=== PATIENT | female | born 1940 | race Caucasian/White ===

== ENCOUNTER 2024-03-24 17:39 | Observation (INO) | payer MEDICARE, SELFPAY ==
[2024-03-24] VITALS (19 sets, daily range): BP systolic 130–161; BP diastolic 88–97; PULSE 75–122; RESP 13–26; TEMP 36.4; O2SAT 91–98
--- NOTE | ~2024-03-24 | XR_ITS ---
EXAMINATION: XR chest 1V portable Exam Date/Time: 03/24/2024 18:00 MAIL SUPERINTENDENT HISTORY: CP Comparison: 08/14/2016. RESULT: Lines, tubes, and devices: None. Lungs and pleura: Mild peripheral reticular opacities. Cardiomediastinal silhouette: Stable. Other: No acute osseous or upper abdominal finding. IMPRESSION: Mild reticular opacities may represent chronic senescent/interstitial change and/or mild interstitial edema. Reviewed, dictated and finalized at location K. SUPERINTENDENT IMPRESSION: Mild reticular opacities may represent chronic senescent/interstitial change an d/or mild interstitial edema.
--- NOTE | 2024-03-24 17:51 | ECG_ITS ---
Test Date: 2024-03-24 17:53:22 Measurements Intervals [place] Rate: 82 P: 0 [place]: 0 QRS: 55 QRSD: 88 T: -31 QT: 386 QTc: 453 Interpretive Statements ATRIAL FLUTTER/TACHYCARDIA WITH ABERRANT CONDUCTION OR VENTRICULAR PREMATURE COMPLEXES NONSPECIFIC ST & T-WAVE ABNORMALITY No previous ECG available for comparison Electronically Signed On 03-29-2024 10:22:36 MACHINIST APPRENTICE by Noé Mccormick M.D.
[2024-03-24 18:04] LABS: Basophils Absolute Auto 0.1 K/mm3 (0.0-0.1); Basophils Percent Auto 0.7 % (0.2-1.2); Eosinophils Absolute Auto 0.3 K/mm3 (0-0.3); Eosinophils Percent Auto 3.5 % (0-4.4); Hematocrit 40.3 % (37.0-47.0); Hemoglobin 13.7 g/dL (12.0-15.0); Immature Granulocyte Absolute 0.02 K/mm3 (0.00-0.031); Immature Granulocyte Percent A 0.2 % (0-0.5); Lymphocytes Absolute Auto 2.38 K/mm3 (0.9-3.2); Lymphocytes Percent Auto 26.9 % (18.3-44.2); Mean Corpuscular Hemoglobin 30.8 pg (26-34); Mean Corpuscular Volume 90.6 fl (80-100); Mean Platelet Volume 9.1 fl (7.4-10.4); Monocytes Absolute Auto 0.7 K/mm3 (0.1-0.6); Monocytes Percent Auto 7.4 % (2.6-8.5); Neutrophils Absolute Auto 5.4 K/mm3 (1.3-6.7); Neutrophils Percent Auto 61.3 % (45.5-73.1); Platelet Count Result 249 k/mm3 (150-375); Red Blood Count 4.45 M/mm3 (4.2-5.4); Red Cell Distribution Width 13.2 % (11.5-14.5); White Blood Count 8.8 K/mm3 (4.5-10.0)
[2024-03-24 18:17] LABS: INR 1.6; Prothrombin Time 19.9 Seconds (11.1-14.7)
[2024-03-24 18:18] LABS: Partial Thromboplastin Time 42.9 Seconds (22.3-36.8)
[2024-03-24 18:19] LABS: Alanine Aminotransferase 14 U/L (6-35); Albumin Level 4.3 g/dL (3.5-5.1); Alkaline Phosphatase 92 U/L (38-126); Anion Gap 3 mmol/L (4-12); Aspartate Amino Transferase 24 U/L (14-36); Bilirubin,Total 0.5 mg/dL (0.2-1.3); Blood Urea Nitrogen 9 mg/dL (7-17); Calcium 8.9 mg/dL (8.4-10.2); Carbon Dioxide 29 mmol/L (22-30); Chloride 104 mmol/L (98-107); Estimated CRCL calculation 49 ml/min; Estimated Glomerular Filt Rate > 60; Glucose 122 mg/dL (65-110); Lipase 191 U/L (23-300); Potassium 3.5 mmol/L (3.4-5.0); Sodium 136 mmol/L (137-145)
[2024-03-24 18:31] LABS: NT Pro B Type Natriuretic Pept 469 pg/mL (19.9-100); Troponin I 0.018 ng/mL (0.000-0.034)
--- NOTE | 2024-03-24 18:32 | ED_ITS ---
HPI - Chest Pain General Chief Complaint: Chest Pain Stated Complaint: CP Time Seen by Provider: 03/24/24 17:58 Source: patient Mode of arrival: EMS Limitations: other (patient only replies yes and no, hx CVA) History of Present Illness HPI narrative: This is a 83 year old female that presents to the ER for chest pain. Reportedly patient endorsed chest pain at her nursing facility. She also points to her legs when asked where her pain is. Unable to obtain much further history. Related Data Allergies Allergy/AdvReac Type Severity Reaction Status Date / Time rosuvastatin Allergy Unknown Unknown Verified 03/24/24 17:57 Review of Systems 2 Review of Systems: ROS unobtainable: Yes unobtainable due to mental status PMFSH Past Medical History Medical History (Updated 03/24/24 @ 22:00 by Zahira Nesbitt PA-C) Vascular dementia without behavioral disturbance Mixed hyperlipidemia Major depression, chronic Hypothyroidism (acquired) History of CVA (cerebrovascular accident) Essential hypertension CKD (chronic kidney disease) stage 3, GFR 30-59 ml/min Chronic atrial fibrillation Aphasia as late effect of cerebrovascular accident Social History Social History Smoking status: Never smoker Alcohol intake: never Exam 2 Narrative: GENERAL: Well-appearing, well-nourished, and in no acute distress. HEAD: Normocephalic, atraumatic. EYES: EOMI. ENT: Nares clear, no rhinorrhea or epistaxis. Mucous membranes moist. Oropharynx without tonsillar hypertrophy exudate or other lesions. NECK: Supple. No adenopathy or masses. No JVD CHEST: Clear to auscultation. No respiratory distress. No wheezes rales or rhonchi HEART: Regular rate and rhythm. No murmur heard. Normal peripheral pulses. EXTREMITIES: Normal range of motion. No edema. SKIN: Warm, dry, no rash. NEURO: Alert and oriented x1. Follows commands. Able to answer yes and no to questions PSYCH: Normal mood and affect Course Course Emergency Course: patient updated on her workup and recommendation for admission Consultations Consultation #1: Spoke with hospitalist about patient and workup who accepts admission Date: 03/24/24 Vital Signs Vital signs: Vital Signs Temperature 97.6 F 03/24/24 17:40 Pulse Rate 77 03/24/24 17:40 Respiratory Rate 20 03/24/24 17:40 Blood Pressure 161/91 H 03/24/24 17:40 Pulse Oximetry 96 03/24/24 17:40 Oxygen Delivery Room Air 03/24/24 17:40 Temperature 97.6 F 03/24/24 17:40 Pulse Rate 83 03/24/24 19:58 Respiratory Rate 17 03/24/24 19:58 Blood Pressure 130/88 03/24/24 18:37 Pulse Oximetry 97 03/24/24 19:58 Oxygen Delivery Room Air 03/24/24 18:58 MDM - Chest Pain MDM Narrative Medical decision making narrative: Patient presents to the emergency department for chest pain. Reporting improvement after nitro administration. Hypertensive upon arrival, this improved without intervention in the ER. CBC metabolic panel without concerning findings. EKG with nonspecific ST changes. Baseline and 3 hour troponin are not elevated, but are up trending. Her heart score is 5. Chest x-ray shows chronic senescent change versus mild interstitial edema. BNP 469. patient updated on her workup and recommendation for admission. Spoke with hospitalist about patient and workup who accepts admission Differential Diagnosis Differential diagnosis: Likely stable angina, unstable angina pectoris, atypical chest pain and costochondritis Lab Data Attestation: I reviewed the patient's lab results. 03/24/24 17:58 03/24/24 17:58 Labs: Lab Results 03/24/24 03/24/24 03/24/24 Range/Units 17:58 17:58 20:59 WBC 8.8 (4.5-10.0) K/mm3 RBC 4.45 (4.2-5.4) M/mm3 Hgb 13.7 (12.0-15.0) g/dL Hct 40.3 (37.0-47.0) % MCV 90.6 (80-100) fl MCH 30.8 (26-34) pg MCHC 34.0 (32-36) g/dl RDW 13.2 (11.5-14.5) % Plt Count 249 (150-375) k/mm3 MPV 9.1 (7.4-10.4) fl Immature Gran % (Auto) 0.2 (0-0.5) % Neut % (Auto) 61.3 (45.5-73.1) % Lymph % (Auto) 26.9 (18.3-44.2) % [place] % (Auto) 7.4 (2.6-8.5) % Eos % (Auto) 3.5 (0-4.4) % Baso % (Auto) 0.7 (0.2-1.2) % Lymph # (Auto) 2.38 (0.9-3.2) K/mm3 [place] # (Auto) 0.7 H (0.1-0.6) K/mm3 Eos # (Auto) 0.3 (0-0.3) K/mm3 Baso # (Auto) 0.1 (0.0-0.1) K/mm3 Abs Immat Gran (auto) 0.02 (0.00-0.031) K/mm3 Absolute Neuts (auto) 5.4 (1.3-6.7) K/mm3 Absolute Nucleated RBC 0.000 (0.0-0.012) K/mm3 Nucleated RBC % 0.0 (0.0-0.2) % PT 19.9 H (11.1-14.7) Seconds INR 1.6 APTT 42.9 H (22.3-36.8) Seconds Sodium 136 L (137-145) mmol/L Potassium 3.5 (3.4-5.0) mmol/L Chloride 104 (98-107) mmol/L Carbon Dioxide 29 (22-30) mmol/L Anion Gap 3 L (4-12) mmol/L BUN 9 (7-17) mg/dL Creatinine 0.80 (0.7-1.0) mg/dL Estim Creat Clear Calc 49 ml/min Estimated GFR > 60 (59 - ) Glucose 122 H (65-110) mg/dL Calcium 8.9 (8.4-10.2) mg/dL Total Bilirubin 0.5 (0.2-1.3) mg/dL AST 24 (14-36) U/L ALT 14 (6-35) U/L Alkaline Phosphatase 92 (38-126) U/L Troponin I 0.018 0.025 D (0.000-0.034) ng/mL NT-Pro-B Natriuret Pep 469 H Cancelled (19.9-100) pg/mL Total Protein 8.0 (6.3-8.2) g/dL Albumin 4.3 (3.5-5.1) g/dL Lipase 191 (23-300) U/L Imaging Data Radiologist's impression: ITS Impressions Chest X-Ray 03/24/24 18:15 IMPRESSION: Mild reticular opacities may represent chronic senescent/interstitial change and/or mild interstitial edema. ECG Data EKG #1: ECG completion date: 03/24/24 EKG Interpretation: normal rate, non-specific ST changes and normal QT Critical Care Time Critical Care Time Critical Care Time: No Discharge Plan Discharge Clinical Impression: Chest pain Qualifiers: Chest pain type: unspecified Qualified Code(s): R07.9 - Chest pain, unspecified Patient Disposition: Still a Patient Condition: Stable Quality HEART score for chest pain patients History: slightly suspicious ECG: non specific repolarization disturbance/LBTB/PM Age: > or = to 65 years Risk factors: > or = to 3 risk factors of atherosclerotic disease Troponin: < or = to 1x normal limit Heart score: 5
[2024-03-24] MEDS: ACETAMINOPHEN 500 MG TABLET 1000 MG PO (18:57)
--- NOTE | 2024-03-24 20:43 | ECG_ITS ---
Test Date: 2024-03-24 17:53:24 Measurements Intervals [place] Rate: 80 P: 0 [place]: 0 QRS: 57 QRSD: 86 T: -52 QT: 388 QTc: 448 Interpretive Statements ATRIAL FLUTTER/TACHYCARDIA WITH ABERRANT CONDUCTION OR VENTRICULAR PREMATURE COMPLEXES NONSPECIFIC ST & T-WAVE ABNORMALITY Compared to ECG 03/24/2024 17:53:22 No significant changes Electronically Signed On 03-29-2024 10:22:41 CARDBOARD CUTTER by Noé Mccormick M.D.
--- NOTE | 2024-03-24 20:45 | ECG_ITS ---
Test Date: 2024-03-24 21:10:02 Measurements Intervals [place] Rate: 82 P: 0 [place]: 0 QRS: 61 QRSD: 91 T: -65 QT: 412 QTc: 482 Interpretive Statements ATRIAL FIBRILLATION ST DEVIATION AND MODERATE T-WAVE ABNORMALITY, CONSIDER INFERIOR ISCHEMIA [-0.1+ mV T-WAVE IN II/aVF] significant baseline artifact affects interpretation Compared to ECG 03/24/2024 17:53:24 Possible ischemia now present Atrial flutter no longer present Ventricular premature complex(es) no longer present Aberrant conduction of supraventricular beat(s) no longer present T-wave abnormality still present Electronically Signed On 03-29-2024 10:26:28 PROCESS SAFETY SPECIALIST by Noé Mccormick M.D.
--- NOTE | 2024-03-24 21:50 | PC.NURSE ---
pure wick in place at this time.
[2024-03-24 21:51] LABS: Troponin I 0.025 ng/mL (0.000-0.034)
--- NOTE | 2024-03-24 23:53 | ECG_ITS ---
Test Date: 2024-03-24 23:56:37 Measurements Intervals [place] Rate: 94 P: 0 [place]: 0 QRS: 62 QRSD: 89 T: 0 QT: 372 QTc: 467 Interpretive Statements ATRIAL FIBRILLATION NONSPECIFIC ST & T-WAVE ABNORMALITY ABNORMAL RHYTHM ECG Compared to ECG 03/24/2024 21:10:02 Possible ischemia no longer present T-wave abnormality still present Electronically Signed On 03-29-2024 10:28:05 GRINDER AND HONER OPERATOR AUTOMATIC by Noé Mccormick M.D.
[2024-03-25] VITALS (31 sets, daily range): BP systolic 135–159; BP diastolic 82–115; PULSE 73–120; RESP 14–32; TEMP 36.7; O2SAT 92–100
[2024-03-25 00:26] LABS: Troponin I 0.027 ng/mL (0.000-0.034)
--- NOTE | 2024-03-25 01:02 | PC.NURSE ---
Pt placed in hospital bed at this time. Gown/linens changed, toussaint placed.
[2024-03-25 06:23] LABS: Basophils Absolute Auto 0.1 K/mm3 (0.0-0.1); Basophils Percent Auto 0.6 % (0.2-1.2); Eosinophils Absolute Auto 0.3 K/mm3 (0-0.3); Eosinophils Percent Auto 2.8 % (0-4.4); Hematocrit 43.7 % (37.0-47.0); Hemoglobin 14.8 g/dL (12.0-15.0); Immature Granulocyte Absolute 0.03 K/mm3 (0.00-0.031); Immature Granulocyte Percent A 0.3 % (0-0.5); Lymphocytes Absolute Auto 2.12 K/mm3 (0.9-3.2); Lymphocytes Percent Auto 20.5 % (18.3-44.2); Mean Corpuscular HGB Conc 33.9 g/dl (32-36); Mean Corpuscular Volume 91.6 fl (80-100); Monocytes Absolute Auto 0.6 K/mm3 (0.1-0.6); Monocytes Percent Auto 5.7 % (2.6-8.5); Neutrophils Absolute Auto 7.3 K/mm3 (1.3-6.7); Neutrophils Percent Auto 70.1 % (45.5-73.1); Platelet Count Result 260 k/mm3 (150-375); Red Blood Count 4.77 M/mm3 (4.2-5.4); Red Cell Distribution Width 13.1 % (11.5-14.5); White Blood Count 10.4 K/mm3 (4.5-10.0)
[2024-03-25 06:33] LABS: Alanine Aminotransferase 14 U/L (6-35); Albumin Level 4.3 g/dL (3.5-5.1); Alkaline Phosphatase 94 U/L (38-126); Anion Gap 5 mmol/L (4-12); Aspartate Amino Transferase 22 U/L (14-36); Bilirubin,Total 0.7 mg/dL (0.2-1.3); Blood Urea Nitrogen 7 mg/dL (7-17); Calcium 8.8 mg/dL (8.4-10.2); Carbon Dioxide 26 mmol/L (22-30); Chloride 107 mmol/L (98-107); Estimated CRCL calculation 64 ml/min; Estimated Glomerular Filt Rate > 60; Glucose 121 mg/dL (65-110); Magnesium 2.1 mg/dL (1.6-2.3); Potassium 3.5 mmol/L (3.4-5.0); Sodium 138 mmol/L (137-145)
--- NOTE | 2024-03-25 08:50 | PC.NURSE ---
Pt continuing to yell hey This RN has went in multiple times to address her needs. asked about toileting, pain, position. pt continues to yell and cry. Called hospitalist for orders for something for anxiety
--- NOTE | 2024-03-25 11:00 | P.HP_ITS ---
H&P: HPI History of Present Illness Date/Time: 03/25/24 11:00 Chief Complaint: Chest pain Narrative: 83yo female with dementia, HLD, CVA, CKD and chronic AFib here for chest pain. Patient is alert but essentially nonverbal. She answers with 1-2 word answers (no, yes, that'a baby). This hx is very limited and can not be verified. When asked where she has pain, she gesters to the upper chest and base of the neck. She denies nausea, vomiting, SOB, back or shoulder pain. She can not describe pain but denies burning, sharpness or pressure type pain. She answers yes when asked about acid reflux. In the ED, she was hemodynamically stable. She was not febrile, hypoxic or tachycardic. EKG showing probably AFlutter and nonspecific ST and T wave changes. No old EKG to compare. CXR showing mild reticular opacities. CBC was normal. PT 20 with INR 1.6 and PTT 43 on Eliquis. Sodium 136 o/w CMP normal. Lipase normal. Troponin negative x3. BNP 469. She was given Tylenol. ED note state patient had improvement with NTG but not documented here (possibly given by EMS). Humphreys placed due to urinary frequency and incontinence. She was admitted for further care. Review of Systems Review of Systems: ROS unobtainable: Yes unobtainable due to mental status PMFSH Past Medical History Medical History (Updated 03/25/24 @ 12:18 by Lew Beach MD) Vascular dementia without behavioral disturbance Mixed hyperlipidemia Major depression, chronic Hypothyroidism (acquired) History of CVA (cerebrovascular accident) Essential hypertension CKD (chronic kidney disease) stage 3, GFR 30-59 ml/min Chronic atrial fibrillation Aphasia as late effect of cerebrovascular accident Surgical History Surgical History (Updated 03/25/24 @ 11:47 by Lew Beach MD) Surgical history unknown Family History Family History (Updated 03/25/24 @ 11:47 by Lew Beach MD) Other Family history unknown Social History Social History Smoking status: Never smoker Alcohol intake: never Meds Home Medications and Allergies Home Medications ?Medication ?Instructions ?Recorded ?Confirmed ?Type albuterol sulfate 90 mcg/actuation 2 inh inhalation Q4H 03/25/24 03/25/24 History aerosol inhaler apixaban 5 mg tablet (Eliquis) 5 mg PO BID 03/25/24 03/25/24 History buspirone 7.5 mg tablet 7.5 mg PO TID 03/25/24 03/25/24 History calcium carbonate (Antacid 200 mg PO BID 03/25/24 03/25/24 History (calcium carbonate)) diclofenac sodium 3 % topical gel 1 applic topical PRN PRN pain 03/25/24 03/25/24 History docusate sodium 100 mg capsule 100 mg PO DAILY 03/25/24 03/25/24 History ezetimibe 10 mg tablet 10 mg PO HS 03/25/24 03/25/24 History furosemide 40 mg tablet 40 mg PO ONCE 03/25/24 03/25/24 History levothyroxine 75 mcg tablet 75 mcg PO DAILY 03/25/24 03/25/24 History losartan 50 mg tablet 50 mg PO BID 03/25/24 03/25/24 History magnesium hydroxide 400 mg/5 mL 2,400 mg PO DAILY 03/25/24 03/25/24 History oral suspension (Milk of Magnesia) mirabegron 25 mg tablet,extended 25 mg PO Q24H 03/25/24 03/25/24 History release 24 hr (Myrbetriq) nitroglycerin 0.4 mg sublingual 0.4 mg sublingual Q5M PRN chest 03/25/24 03/25/24 History tablet pain omeprazole 20 mg capsule,delayed 20 mg PO DAILY 03/25/24 03/25/24 History release potassium chloride 20 mEq 40 meq PO DAILY 03/25/24 03/25/24 History tablet,extended release(part/cryst) risperidone 0.5 mg tablet 0.5 mg PO BID 03/25/24 03/25/24 History sertraline 50 mg tablet 50 mg PO DAILY 03/25/24 03/25/24 History trazodone 50 mg tablet 50 mg PO DAILY 03/25/24 03/25/24 History Allergies Allergy/AdvReac Type Severity Reaction Status Date / Time rosuvastatin Allergy Unknown Unknown Verified 03/24/24 17:57 Vital Signs Vital Signs - 24 hr 03/24/24 17:40 03/24/24 17:52 03/24/24 17:53 Temperature 97.6 F Pulse Rate 77 76 76 Respiratory Rate 20 17 Blood Pressure 161/91 H Pulse Oximetry 96 97 Oxygen Delivery Room Air 03/24/24 18:00 03/24/24 18:01 03/24/24 18:15 Temperature Pulse Rate 78 76 75 Respiratory Rate 13 19 15 Blood Pressure 130/88 Pulse Oximetry 97 98 98 Oxygen Delivery 03/24/24 18:37 03/24/24 18:58 03/24/24 19:03 Temperature Pulse Rate 84 81 Respiratory Rate 15 15 Blood Pressure 130/88 Pulse Oximetry 97 97 Oxygen Delivery Room Air 03/24/24 19:58 03/24/24 21:50 03/24/24 22:29 Temperature Pulse Rate 83 92 86 Respiratory Rate 17 17 20 Blood Pressure Pulse Oximetry 97 96 94 Oxygen Delivery 03/24/24 22:44 03/24/24 22:45 03/24/24 23:00 Temperature Pulse Rate 92 85 83 Respiratory Rate 25 H 19 18 Blood Pressure Pulse Oximetry 93 Oxygen Delivery 03/24/24 23:15 03/24/24 23:16 03/24/24 23:30 Temperature Pulse Rate 95 87 78 Respiratory Rate 16 17 20 Blood Pressure 146/97 H Pulse Oximetry 94 Oxygen Delivery 03/24/24 23:45 03/25/24 00:00 03/25/24 00:16 Temperature Pulse Rate 122 H 100 89 Respiratory Rate 26 H 15 21 H Blood Pressure Pulse Oximetry 91 94 Oxygen Delivery 03/25/24 00:30 03/25/24 01:00 03/25/24 01:15 Temperature Pulse Rate 99 95 88 Respiratory Rate 27 H 20 18 Blood Pressure Pulse Oximetry 94 95 Oxygen Delivery 03/25/24 01:30 03/25/24 01:59 03/25/24 02:00 Temperature Pulse Rate 91 75 77 Respiratory Rate 32 H 20 19 Blood Pressure Pulse Oximetry 94 95 95 Oxygen Delivery 03/25/24 02:15 03/25/24 02:30 03/25/24 03:46 Temperature Pulse Rate 78 73 85 Respiratory Rate 20 19 15 Blood Pressure Pulse Oximetry 96 96 Oxygen Delivery 03/25/24 04:16 03/25/24 04:30 03/25/24 04:53 Temperature Pulse Rate 89 84 91 Respiratory Rate 29 H 30 H 27 H Blood Pressure Pulse Oximetry 92 94 93 Oxygen Delivery 03/25/24 05:00 03/25/24 05:28 03/25/24 05:30 Temperature Pulse Rate 90 103 H 97 Respiratory Rate 26 H 20 21 H Blood Pressure Pulse Oximetry 98 97 Oxygen Delivery 03/25/24 05:31 03/25/24 05:52 03/25/24 06:00 Temperature Pulse Rate 80 97 112 H Respiratory Rate 15 18 24 H Blood Pressure 159/96 H Pulse Oximetry 95 94 Oxygen Delivery 03/25/24 06:15 03/25/24 06:16 Temperature Pulse Rate 93 94 Respiratory Rate 18 19 Blood Pressure 146/115 H Pulse Oximetry 96 96 Oxygen Delivery Exam Narrative: AF 97.6 146/115 94 19 96% ra Gen - well appearing female in no acute respiratory distress who is nontoxic- appearing lying semi recumbent in bed HEENT - normocephalic. Atraumatic. Pupils equal round and reactive. Extraocular motion intact. Moist mucous membranes. Tongue was midline. Palate lolita symmetrically. No facial asymmetry. Neck - neck was supple. No dominant adenopathy, thyromegaly or masses. Chest - lungs are clear to auscultation bilaterally. No wheezes or crackles. Breast exam was deferred. CV - heart was irregularly irregular. S1-S2. No murmurs Abd - abdomen was soft. Nontender. Nondistended. Positive bowel sounds. No organomegaly or masses. - Humphreys secured draining cloudy yellow urine Ext - nonpitting edema. 2+ DP pulses bilaterally. Neuro - patient is awake and alert. She engages with examiner. She is mostly aphasic able to say 1-2 word answers. Follows commands mostly. Strength is 5/5 in upper extremities. Bilateral LE mild flexion contractions at the knees. Psych - becomes upset and starts to yell Skin - warm and dry. H&P: Results Labs Labs: Short CBC 03/24/24 03/25/24 Range/Units 17:58 06:13 WBC 8.8 10.4 H (4.5-10.0) K/mm3 Hgb 13.7 14.8 (12.0-15.0) g/dL Hct 40.3 43.7 (37.0-47.0) % Plt Count 249 260 (150-375) k/mm3 BMP 03/24/24 03/25/24 17:58 06:13 Sodium 136 L 138 Potassium 3.5 3.5 Chloride 104 107 Carbon Dioxide 29 26 BUN 9 7 Creatinine 0.80 0.60 L Glucose 122 H 121 H Calcium 8.9 8.8 Cardiac Enzymes 03/24/24 03/24/24 03/24/24 Range/Units 17:58 20:59 23:51 Troponin I 0.018 0.025 D 0.027 (0.000-0.034) ng/mL Liver Function 03/24/24 03/25/24 Range/Units 17:58 06:13 Total Bilirubin 0.5 0.7 (0.2-1.3) mg/dL AST 24 22 (14-36) U/L ALT 14 14 (6-35) U/L Alkaline Phosphatase 92 94 (38-126) U/L Albumin 4.3 4.3 (3.5-5.1) g/dL Assessment and Plan Assessment and plan (1) Chest pain: Qualifiers: Chest pain type: unspecified Qualified Code(s): R07.9 - Chest pain, unspecified Code(s): R07.9 - Chest pain, unspecified Status: Acute Assessment and Plan: Patient with 'chest pain' but unclear if this is accurate. EKG showing probably AFlutter and nonspecific ST and T wave changes. No old EKG to compare. CXR showing mild reticular opacities. Troponin negative x3. BNP 469. She appears to be upset at times but unclear if related to an acute process or from anxiety being in the ED or more of a chronic issue (see home med list). Some minor findings noted on current workup up but nothing to suggest acute coronary issue. Will check UA with reflex given the urinary frequency and cloudy nature. Resume PPI for possible acid reflux. (2) Chronic atrial fibrillation: Code(s): I48.20 - Chronic atrial fibrillation, unspecified Status: Acute Assessment and Plan: HR controlled on admission but she does become more elevated to 120's when she become anxious and yelling out. BP also elevated at times. Will resume her losartan. Continue Eliquis Add metoprolol. Monitor on tele (3) CKD (chronic kidney disease) stage 3, GFR 30-59 ml/min: Code(s): N18.30 - Chronic kidney disease, stage 3 unspecified Status: Acute Assessment and Plan: Patient presumably has CKD but Cr 0.6 with CrCl 64 and sGFR>60. Follow (4) Essential hypertension: Code(s): I10 - Essential (primary) hypertension Status: Acute Assessment and Plan: As above. BP was elevated on admission and then periodically felt related to anxiety. Follow (5) History of CVA (cerebrovascular accident): Code(s): Z86.73 - Personal history of transient ischemic attack (TIA), and cerebral infarction without residual deficits Status: Acute Assessment and Plan: Hx of CVA with residual aphasia. Continue Zetia Eliquis. Allergy to statin therapy (6) Aphasia as late effect of cerebrovascular accident: Code(s): I69.320 - Aphasia following cerebral infarction Status: Acute Assessment and Plan: As above. (7) Vascular dementia: Code(s): F01.50 - Vascular dementia, unspecified severity, without behavioral disturbance, psychotic disturbance, mood disturbance, and anxiety Status: Acute Assessment and Plan: Patient has vascular dementia with behavioral issues. We have resumed her buspirone, risperidone, sertraline and trazodone. Monitor mental status. Plan DVT prophylaxis - Eliquis Code status - DNR
[2024-03-25] MEDS: traZODone HCL 50 MG TABLET PO (11:35)
[2024-03-25] MEDS: METOPROLOL TARTRATE 12.5 MG TABLET PO (11:36)
[2024-03-25] MEDS: LEVOTHYROXINE SODIUM 75 MCG TABLET PO (11:37)
[2024-03-25] MEDS: APIXABAN 5 MG TABLET PO (11:38)
[2024-03-25] MEDS: busPIRone HCL 5 MG TABLET PO ×2 (11:38→14:29)
[2024-03-25] MEDS: SERTRALINE HCL 50 MG TABLET PO (11:38)
[2024-03-25] MEDS: MIRABEGRON 25 MG ER TABLET PO (11:38)
[2024-03-25] MEDS: busPIRone HCL 2.5 MG TABLET PO ×2 (11:39→14:29)
[2024-03-25] MEDS: DOCUSATE SODIUM 100 MG CAPSULE PO (11:40)
[2024-03-25] MEDS: risperiDONE 0.5 MG TABLET PO (11:40)
[2024-03-25] MEDS: PANTOPRAZOLE 40 MG TABLET PO (11:45)
[2024-03-25] MEDS: LOSARTAN POTASSIUM 50 MG TABLET PO (11:45)
--- NOTE | 2024-03-25 11:51 | PC.NURSE ---
Nuc. Med requested to hold off on ordering meal tray for pt due to ordered stress test
--- NOTE | 2024-03-25 12:14 | PC.NURSE ---
called [facility] Medicine to notify them that pt is now calm and feels more comfortable. they will be coming to the ED to get pt for stress test w/ perfusion
--- NOTE | 2024-03-25 12:28 | P.DS_ITS ---
DS: Admitting Diagnosis Discharge Date 03/25/24 Admitting Diagnosis Chest pain DS: Discharge Diagnosis Discharge Diagnosis (1) Chest pain: Qualifiers: Chest pain type: unspecified Qualified Code(s): R07.9 - Chest pain, unspecified Code(s): R07.9 - Chest pain, unspecified Status: Acute (2) Chronic atrial fibrillation: Code(s): I48.20 - Chronic atrial fibrillation, unspecified Status: Acute (3) CKD (chronic kidney disease) stage 3, GFR 30-59 ml/min: Code(s): N18.30 - Chronic kidney disease, stage 3 unspecified Status: Acute (4) Essential hypertension: Code(s): I10 - Essential (primary) hypertension Status: Acute Assessment and Plan: As above. BP was elevated on admission and then periodically felt related to anxiety. Follow (5) History of CVA (cerebrovascular accident): Code(s): Z86.73 - Personal history of transient ischemic attack (TIA), and cerebral infarction without residual deficits Status: Acute (6) Aphasia as late effect of cerebrovascular accident: Code(s): I69.320 - Aphasia following cerebral infarction Status: Acute (7) Vascular dementia: Code(s): F01.50 - Vascular dementia, unspecified severity, without behavioral disturbance, psychotic disturbance, mood disturbance, and anxiety Status: Acute DS: Summary Hospital Course Reason for hospitalization: 83yo female with dementia, HLD, CVA, CKD and chronic AFib here for chest pain. P lease see H&P for details. Hospital Course: Patient with 'chest pain' but unclear if this is accurate. EKG showing probably AFlutter and nonspecific ST and T wave changes. No old EKG to compare. CXR showing mild reticular opacities. Troponin negative x3. BNP 469. She appears to be upset at times but unclear if related to an acute process or from anxiety being in the ED or more of a chronic issue (see home med list). Some minor findings noted on current workup up but nothing to suggest acute coronary issue. HR controlled on admission but she does become more elevated to 120's when she become anxious and yelling out. BP also elevated at times. We resumed her losartan and Eliquis. Patient presumably has CKD but Cr 0.6 with CrCl 64 and sGFR>60. BP was elevated on admission and then periodically felt related to anxiety. Hx of CVA with residual aphasia. We continued Zetia, Eliquis. Allergy to statin therapy. Patient has vascular dementia with behavioral issues. We have resumed her buspirone, risperidone, sertraline and trazodone. UA collected and was concerning for UTI. UCx pending. Started on oral abx. Spoke with family (POA) who stated nichole has chest pain when she becomes anxious and this is not uncommon for her. She wants to keep 'her comfortable'. We spoke about comfort measures and hospice. She was agreeable about sending patient back to the senior living and talking with hospice. Patient was discharged back to the senior living on 03/25/24. Status at Discharge Cognitive/behavioral status at discharge: stable Time Spent with Patient Time attestation: Total time spent providing and/or coordinating discharge services: 48 minutes Time spent: Greater than 30 minutes Exam Narrative: AF 97.6 146/115 94 19 96% ra Gen - well appearing female in no acute respiratory distress who is nontoxic- appearing lying semi recumbent in bed HEENT - normocephalic. Atraumatic. Pupils equal round and reactive. Extraocular motion intact. Moist mucous membranes. Tongue was midline. Palate lolita symmetrically. No facial asymmetry. Neck - neck was supple. No dominant adenopathy, thyromegaly or masses. Chest - lungs are clear to auscultation bilaterally. No wheezes or crackles. Breast exam was deferred. CV - heart was irregularly irregular. S1-S2. No murmurs Abd - abdomen was soft. Nontender. Nondistended. Positive bowel sounds. No organomegaly or masses. - Humphreys secured draining cloudy yellow urine Ext - nonpitting edema. 2+ DP pulses bilaterally. Neuro - patient is awake and alert. She engages with examiner. She is mostly aphasic able to say 1-2 word answers. Follows commands mostly. Strength is 5/5 in upper extremities. Bilateral LE mild flexion contractions at the knees. Psych - becomes upset and starts to yell Skin - warm and dry. DS: Data Data Completed and Pending Labs on day of discharge: Labs from last 24 hours 03/25/24 03/24/24 03/24/24 06:13 23:51 20:59 WBC 10.4 H RBC 4.77 Hgb 14.8 Hct 43.7 MCV 91.6 MCH 31.0 MCHC 33.9 RDW 13.1 Plt Count 260 MPV 9.0 Immature Gran % (Auto) 0.3 Neut % (Auto) 70.1 Lymph % (Auto) 20.5 [place] % (Auto) 5.7 Eos % (Auto) 2.8 Baso % (Auto) 0.6 Lymph # (Auto) 2.12 [place] # (Auto) 0.6 Eos # (Auto) 0.3 Baso # (Auto) 0.1 Abs Immat Gran (auto) 0.03 Absolute Neuts (auto) 7.3 H Absolute Nucleated RBC 0.000 Nucleated RBC % 0.0 PT INR APTT Sodium 138 Potassium 3.5 Chloride 107 Carbon Dioxide 26 Anion Gap 5 BUN 7 Creatinine 0.60 L Estim Creat Clear Calc 64 Estimated GFR > 60 Glucose 121 H Calcium 8.8 Magnesium 2.1 Total Bilirubin 0.7 AST 22 ALT 14 Alkaline Phosphatase 94 Troponin I 0.027 0.025 D NT-Pro-B Natriuret Pep Total Protein 8.0 Albumin 4.3 Lipase 03/24/24 03/24/24 17:58 17:58 WBC 8.8 RBC 4.45 Hgb 13.7 Hct 40.3 MCV 90.6 MCH 30.8 MCHC 34.0 RDW 13.2 Plt Count 249 MPV 9.1 Immature Gran % (Auto) 0.2 Neut % (Auto) 61.3 Lymph % (Auto) 26.9 [place] % (Auto) 7.4 Eos % (Auto) 3.5 Baso % (Auto) 0.7 Lymph # (Auto) 2.38 [place] # (Auto) 0.7 H Eos # (Auto) 0.3 Baso # (Auto) 0.1 Abs Immat Gran (auto) 0.02 Absolute Neuts (auto) 5.4 Absolute Nucleated RBC 0.000 Nucleated RBC % 0.0 PT 19.9 H INR 1.6 APTT 42.9 H Sodium 136 L Potassium 3.5 Chloride 104 Carbon Dioxide 29 Anion Gap 3 L BUN 9 Creatinine 0.80 Estim Creat Clear Calc 49 Estimated GFR > 60 Glucose 122 H Calcium 8.9 Magnesium Total Bilirubin 0.5 AST 24 ALT 14 Alkaline Phosphatase 92 Troponin I 0.018 NT-Pro-B Natriuret Pep Cancelled 469 H Total Protein 8.0 Albumin 4.3 Lipase 191 Discharge Plan Discharge Attending physician on discharge: Lew Beach Discharging Clinician: Lew Beach Anticipated Discharge Date/Time: 03/25/24 12:36 Patient Disposition: [facility] Skilled Nursing/Asst Living Activity: as tolerated Diet: regular Discharge Instructions: Take precautions to avoid falls. Hospice consult. Avoid NSAIDs (ibuprofen, naproxen, Aleve). Tylenol is safe to take. Follow-up with the provider at the facility. Thank you for using [facility] for your health care needs. Patient Instructions: Antibiotic Form Patient Language: [place] Stand Alone Forms: General Discharge Information Follow-up/Referrals: UNKNOWN,DOCTOR [Primary Care Provider] - Discharge Medications: New cefdinir 300 mg capsule 300 mg PO Q12H 7 Days Qty: 14 0RF Continued albuterol sulfate 90 mcg/actuation HFA aerosol inhaler 2 inh INHALATION Q4H Eliquis 5 mg tablet 5 mg PO BID buspirone 7.5 mg tablet 7.5 mg PO TID calcium carbonate [Antacid (calcium carbonate)] 200 mg calcium (500 mg) tablet,chewable 200 mg PO BID diclofenac sodium 3 % gel 1 applic topical PRN PRN (Reason: pain) docusate sodium 100 mg capsule 100 mg PO DAILY ezetimibe 10 mg tablet 10 mg PO HS furosemide 40 mg tablet 40 mg PO ONCE levothyroxine 75 mcg tablet 75 mcg PO DAILY losartan 50 mg tablet 50 mg PO BID magnesium hydroxide [Milk of Magnesia] 400 mg/5 mL suspension 2,400 mg PO DAILY mirabegron [Myrbetriq] 25 mg tablet extended release 24 hr 25 mg PO Q24H nitroglycerin 0.4 mg tablet, sublingual 0.4 mg sublingual Q5M PRN (Reason: chest pain) omeprazole 20 mg capsule,delayed release(DR/EC) 20 mg PO DAILY potassium chloride 20 mEq tablet,ER particles/crystals 40 meq PO DAILY risperidone 0.5 mg tablet 0.5 mg PO BID sertraline 50 mg tablet 50 mg PO DAILY trazodone 50 mg tablet 50 mg PO DAILY Date of admission: 03/24/24 22:59 Primary Care Provider: UNKNOWN,DOCTOR Admitting Provider: Lew Beach Attending physician on admission: Lew Beach Condition: Stable Hospitalist MIPS Heart Failure (Exclusion) Patient has history of Heart Transplant or Left Ventricular Assistive Device?: No IF YES, STOP HERE Heart Failure (Qualifier) Patient has current or prior documentation of LVEF less than or equal to 40%, or mod/servere depressed LVSF?: No IF NO, STOP HERE
--- NOTE | 2024-03-25 12:55 | PC.NURSE ---
pt out of ED and to Nuc. Med. at [id number]
--- NOTE | 2024-03-25 13:51 | PC.NURSE ---
KURTIS to discontinue Diclofenac Sodium 3% and 1% per Dr. Beach.
--- NOTE | 2024-03-25 14:01 | PC.NURSE ---
pt unable to stay calm for stress test. provider notified and VORB to collet UA and then discharge pt after collection
[2024-03-25 14:14] LABS: Add Urine Microscopic? YES; Appearance Urine Clear (Clear); Bacteria Urine 1+ /hpf; Bilirubin Urine Negative (Negative); Blood Urine 2+ (Negative); Color Urine Yellow (Yellow); Glucose Urine UA Negative (Negative); Ketones Urine Negative (Negative); Leukocyte Esterase Ur 2+ LEU/UL (Negative); Nitrate Urine Negative (Negative); Non Pathogenic Casts 0-2; Protein Urine Negative (Negative); RBC Urine 21-50 /hpf (0-2); Specific Grav Ur 1.007 (1.001-1.035); Squamous Epithelial Cell Urine None Seen /hpf (Few); Urobilinogen Urine 0.2 mg/dL (<2.0); pH Urine 8.5 (5.0-9.0)
--- NOTE | 2024-03-25 14:48 | PCCARD ---
[facility] INFORMED ME THE PATIENT IS REFUSING THE [place] STRESS TEST - CANCELLED TEST
== END 2024-03-25 15:20 ==
LOC: ANHED 23:14 → ANHIMU 23:19
PROVIDERS: Emergency Medicine; Nurse Practitioner; Admitting Provider Internal Medicine; Emergency Provider Physician Assistant; Visit Provider Internal Medicine
DX: R07.9 Chest pain, unspecified (principal); I48.20 Chronic atrial fibrillation, unspecified; I12.9 Hypertensive chronic kidney disease with stage 1 through stage 4 chronic kidney disease, or unspecified chronic kidney disease; N18.30 Chronic kidney disease, stage 3 unspecified; I69.920 Aphasia following unspecified cerebrovascular disease; F01.518 Vascular dementia, unspecified severity, with other behavioral disturbance; F32.A Depression, unspecified; E78.2 Mixed hyperlipidemia; E03.9 Hypothyroidism, unspecified; R35.0 Frequency of micturition; R32 Unspecified urinary incontinence; Z79.51 Long term (current) use of inhaled steroids; Z79.01 Long term (current) use of anticoagulants
CPT/HCPCS: 36415; 71045; 80053; 81001; 83690; 83735; 83880; 84484; 85025; 85610; 85730; 87086; 87186; 93005; 99285; A9270; G0378